=== PATIENT | female | born 1965 | race Caucasian/White ===

== ENCOUNTER 2019-09-11 17:34 | Outpatient (CLI) | payer OTHER, SELFPAY ==
--- NOTE | ~2019-09-11 | XR_ITS ---
EXAMINATION: XR chest 2V EXAM DATE: 09/11/2019 17:45 INDICATION: Acute upper respiratory infection. Cough. TECHNIQUE: Frontal and lateral projections of the chest obtained and reviewed. Comparison is made to prior examination from 04/07/2019. FINDINGS: The lungs are clear. There are no pleural effusions. The cardiomediastinal silhouette is within normal limits. There is no pneumothorax suspected. The bones and soft tissues are unremarkab le. There is no significant interval change. IMPRESSION: No acute cardiopulmonary findings. Reviewed, dictated and finalized at location A. ORACLE DEVELOPER
== END 2019-09-11 17:35 | disposition home or self-care (01) ==
LOC: ANHIMG 17:34
PROVIDERS: PCP Internal Medicine; Visit Provider Internal Medicine
DX: R68.89 Other general symptoms and signs (principal); R05 Cough; J02.9 Acute pharyngitis, unspecified; J06.9 Acute upper respiratory infection, unspecified
CPT/HCPCS: 71046

== ENCOUNTER 2019-09-12 08:37 | Outpatient (CLI) | payer OTHER, SELFPAY | END 2019-09-12 08:38 | disposition home or self-care (01) | PROVIDERS: PCP Internal Medicine; Visit Provider Internal Medicine | DX: J42 Unspecified chronic bronchitis (principal) | CPT/HCPCS: 87015; 87070; 87116; 87205; 87206 ==

== ENCOUNTER 2019-09-15 12:22 | Outpatient (CLI) | payer OTHER, SELFPAY ==
[2019-09-15 13:43] LABS: Basophils Percent Auto 0.3 % (0.2-1.2); Eosinophils Percent Auto 0.2 % (0-4.4); Hemoglobin 14.7 g/dL (12.0-15.0); Immature Granulocyte Absolute 0.06 K/mm3 (0.00-0.031); Immature Granulocyte Percent A 0.7 % (0-0.5); Lymphocytes Absolute Auto 1.34 K/mm3 (0.9-3.2); Lymphocytes Percent Auto 14.9 % (18.3-44.2); Mean Corpuscular Hemoglobin 27.9 pg (26-34); Mean Corpuscular Volume 87.3 fl (80-100); Mean Platelet Volume 10.6 fl (7.4-10.4); Monocytes Absolute Auto 0.7 K/mm3 (0.1-0.6); Monocytes Percent Auto 7.2 % (2.6-8.5); Neutrophils Absolute Auto 6.9 K/mm3 (1.3-6.7); Neutrophils Percent Auto 76.7 % (45.5-73.1); Platelet Count Result 284 k/mm3 (150-375); Red Blood Count 5.27 M/mm3 (4.2-5.4); Red Cell Distribution Width 13.3 % (11.5-14.5)
[2019-09-15 13:57] LABS: Alanine Aminotransferase 32 U/L (4-35); Albumin Level 4.7 g/dL (3.5-5.1); Alkaline Phosphatase 104 U/L (38-126); Aspartate Amino Transferase 26 U/L (14-36); Bilirubin,Total 0.6 mg/dL (0.2-1.3); Blood Urea Nitrogen 19 mg/dL (7-17); CRP < 0.5 mg/dL (<1.0); Carbon Dioxide 24 mmol/L (22-30); Chloride 102 mmol/L (98-107); Estimated Glomerular Filt Rate > 60; Glucose 85 mg/dL (65-105); Sodium 138 mmol/L (137-145)
[2019-09-15 14:08] LABS: Add Urine Microscopic? YES; Appearance Urine Clear (Clear); Bilirubin Urine Negative (Negative); Blood Urine Negative (Negative); Color Urine Yellow (Yellow); Glucose Urine UA Negative (Negative); Ketones Urine Negative (Negative); Leukocyte Esterase Ur Negative LEU/UL (NEGATIVE); Mucus Urine Rare /lpf; Nitrate Urine Negative (Negative); Protein Urine Negative (Negative); RBC Urine 0-2 /hpf (0-2); Specific Grav Ur 1.019 (1.001-1.035); Squamous Epithelial Cell Urine Few /hpf (Few); Urobilinogen Urine Negative mg/dL (<2.0); WBC Urine 0-3 /hpf (0-3)
[2019-09-18 13:46] LABS: Procalcitonin <0.10 ng/mL (<0.10)
== END 2019-09-15 12:23 | disposition home or self-care (01) ==
PROVIDERS: PCP Internal Medicine; Visit Provider Internal Medicine Critical Care Medicine
DX: B99.9 Unspecified infectious disease (principal); M35.9 Systemic involvement of connective tissue, unspecified
CPT/HCPCS: 36415; 80053; 81001; 84145; 85025; 86140

== ENCOUNTER 2019-09-18 11:16 | Outpatient (RCR) | payer OTHER, SELFPAY | END 2019-12-15 23:59 | disposition home or self-care (01) | LOC: ANHLAB 11:16 | PROVIDERS: PCP Internal Medicine; Visit Provider Internal Medicine Critical Care Medicine | DX: B99.9 Unspecified infectious disease (principal); R05 Cough | CPT/HCPCS: 87015; 87070; 87102; 87106; 87107; 87116; 87205; 87206 ==

== ENCOUNTER 2019-11-03 08:56 | Outpatient (CLI) | payer OTHER, SELFPAY ==
[2019-11-03 09:18] LABS: Basophils Absolute Auto 0.1 K/mm3 (0.0-0.1); Basophils Percent Auto 0.9 % (0.2-1.2); Eosinophils Absolute Auto 0.1 K/mm3 (0-0.3); Eosinophils Percent Auto 2.1 % (0-4.4); Hematocrit 45.7 % (37.0-47.0); Hemoglobin 14.6 g/dL (12.0-15.0); Immature Granulocyte Absolute 0.01 K/mm3 (0.00-0.031); Immature Granulocyte Percent A 0.2 % (0-0.5); Lymphocytes Absolute Auto 1.32 K/mm3 (0.9-3.2); Mean Corpuscular HGB Conc 31.9 g/dl (32-36); Mean Corpuscular Hemoglobin 27.9 pg (26-34); Mean Corpuscular Volume 87.4 fl (80-100); Mean Platelet Volume 10.2 fl (7.4-10.4); Monocytes Absolute Auto 0.5 K/mm3 (0.1-0.6); Monocytes Percent Auto 8.7 % (2.6-8.5); Neutrophils Absolute Auto 3.8 K/mm3 (1.3-6.7); Neutrophils Percent Auto 65.1 % (45.5-73.1); Platelet Count Result 231 k/mm3 (150-375); Red Blood Count 5.23 M/mm3 (4.2-5.4); White Blood Count 5.8 K/mm3 (4.5-10.0)
[2019-11-03 09:26] LABS: Hemoglobin A1C 5.4 % (<5.7)
[2019-11-03 09:36] LABS: Cholesterol 160 mg/dL (0-200); HDL Direct 48 mg/dL; Triglycerides 82 mg/dL (<150)
[2019-11-03 09:59] LABS: LDL Cholesterol Direct 84 mg/dL
[2019-11-03 10:49] LABS: Vitamin D 25 Hydroxy 87.2 ng/mL
== END 2019-11-03 08:57 | disposition home or self-care (01) ==
LOC: ANHLAB 08:58
PROVIDERS: PCP Internal Medicine; Visit Provider Internal Medicine
DX: B99.9 Unspecified infectious disease (principal); Z79.899 Other long term (current) drug therapy
CPT/HCPCS: 36415; 80061; 82306; 83036; 84443; 85025

== ENCOUNTER 2019-11-14 14:11 | Outpatient (CLI) | payer OTHER, SELFPAY ==
[2019-11-15 11:14] LABS: Reference Lab Test Result Negative
== END 2019-11-14 14:12 | disposition home or self-care (01) ==
PROVIDERS: PCP Internal Medicine; Visit Provider Internal Medicine
DX: B99.9 Unspecified infectious disease (principal)
CPT/HCPCS: 36415; 86769

== ENCOUNTER 2019-12-12 10:07 | Outpatient (CLI) | payer OTHER, SELFPAY ==
--- NOTE | ~2019-12-12 | CT_ITS ---
EXAMINATION:CT chest high resolution wo ne DATE: 12/12/2019 10:29 INDICATION: Unspecified infectious disease. TECHNIQUE: Computed tomography (CT) of the chest was performed without intravenous contrast. Automate d exposure control and iterative reconstruction technique were employed. The dose-length product (DLP ) was 294.48 mGy-cm. COMPARISON: Chest CT 05/09/2019, chest 2 views 09/11/2019 FINDINGS: There is mild atelectasis bilaterally. Calcified left lung nodules and calcified left hilar and mediastinal lymph nodes are consistent with old granulomatous disease. No pleural effusion. The heart size is normal. No pericardial effusion. Pectus excavatum is noted. Calcifications in the splee n are consistent with old granulomatous disease. There are changes of cholecystectomy. There is thora cic levocurvature and moderate spondylosis. IMPRESSION: 1. No acute pulmonary disease. Reviewed, dictated and finalized at location A.
== END 2019-12-12 10:08 | disposition home or self-care (01) ==
LOC: ANHIMG 10:14
PROVIDERS: PCP Internal Medicine; Visit Provider Internal Medicine Critical Care Medicine
DX: R06.02 Shortness of breath (principal)
CPT/HCPCS: 71250

== ENCOUNTER 2020-01-05 12:44 | Outpatient (CLI) | payer OTHER, SELFPAY ==
--- NOTE | 2020-01-07 10:41 | PFT_ITS ---
This report was moved to the correct visit, [id number], on January 15, 2020. Original report was signed by Dr. Shade Gray on January 07, 2020. PFT Interpretation PFT Interpretation: This PFT met all criteria for ATS standards and reproducibility FEV/FVC post bronchodilator 85% of predicted FEV1 106% FVC 95% TLC 96% RV 95% RV/TLC 36% DLCO 100% when adjusted for alveolar volume but not adjusted for hemoglobin Flow volume loops were normal NiOX was 22 ppb which is normal. Impression: Normal PFT and normal NiOx study. Clinical correlation is advised. Report Initialized date/time: Shaed Robertson MD 01/07/20 / 1040 Electronically signed by: Shade Robertson MD 01/07/201040 [facility]
== END 2020-01-05 12:45 | disposition home or self-care (01) ==
PROVIDERS: PCP Internal Medicine; Visit Provider Internal Medicine
DX: R05 Cough (principal)
CPT/HCPCS: 94060; 94726; 94729; 95012

== ENCOUNTER 2020-02-09 15:12 | Outpatient (CLI) | payer OTHER, SELFPAY | END 2020-02-09 15:13 | disposition home or self-care (01) | LOC: ANHLAB 15:13 | PROVIDERS: PCP Internal Medicine; Visit Provider Internal Medicine Critical Care Medicine | DX: J45.909 Unspecified asthma, uncomplicated (principal) | CPT/HCPCS: 36415; 82785; 86003 ==

== ENCOUNTER → 2020-03-14 12:24 | Outpatient (CLI) | payer OTHER, SELFPAY ==
--- NOTE | ~2020-03-14 | MM_ITS ---
EXAMINATION: MM screening daisha BI w ryan HISTORY: Screening TECHNIQUE: Craniocaudal and mediolateral oblique 3-D tomosynthesis images were obtained and synthetic 2-D images were generated. CAD analysis was submitted and interpreted. COMPARISON: Comparison to multiple prior studies sequentially, with oldest reviewed study dated 11/24. BREAST PARENCHYMAL COMPOSITION: There are scattered areas of fibroglandular density. FINDINGS: There is no evidence of suspicious mass, calcification, or architectural distortion to sugg est malignancy in either breast. There has been no suspicious interval change. IMPRESSION: 1. No mammographic evidence of malignancy. 2. Recommend routine screening mammography in one year. BI-RADS Category 1: Negative Reviewed, dictated and finalized at location A.
== END ==
PROVIDERS: PCP Internal Medicine; Visit Provider Obstetrics & Gynecology
DX: Z12.31 Encounter for screening mammogram for malignant neoplasm of breast (principal)
CPT/HCPCS: 77063; 77067

== ENCOUNTER 2020-06-12 07:37 | Outpatient (CLI) | payer OTHER, SELFPAY ==
--- NOTE | 2020-07-17 15:48 | WPDHOMESLEEP ---
Sleep Study - Home Unattended Date of Study: 06/12/20 Ordering Provider: Reji mcgill MD Interpreting Physician: Chuyita Harp MD Home Sleep Study Type: Apnea Link Air Height: 1.75 m Weight: 101.151 kg Body Mass Index: 32.9 Neck Circumference (inches): 14.5 [place]nora: 3 Reason for Sleep Study diastolic dysfunction, taking trazodone at night to prevent migraines Sleep History Saba Hartley is a 55 year old female with new diastolic dysfunction seen on an echo after a prolonged respiratory illness, now on Diovan for hypertension. She is having sleep evaluation to determine if sleep apnea may be causing diastolic dysfunction. She frequently snores at night and is frequently loud enough that others complain about it. she does not awaken and I with heartburn, belching or coughing. She does not awaken from sleep feeling short of breath. She frequently has trouble sleep with a cold. She does not wake up gasping for breath during the night or have breathing problems at night reported to her by others. She rarely sweats excessively at night. She occasionally notices her heart pounding or beating irregularly night. She rarely falls asleep during the day, never involuntarily and never while driving. She does not fall asleep during physical effort. She does not have loss of muscle tone with strong emotion and does not have daytime difficulties due to excessive sleepiness. She does not feel paralyzed on waking or falling asleep. She occasionally has vivid dreamlike scenes upon awakening or falling asleep. She has never a freight to go to sleep. She rarely has nightmares. She occasionally remembers her dreams. She rarely has racing thoughts or mine, really feel said depressed or anxious. She occasionally has muscular tension. She occasionally notices parts of her body jerking. She rarely kicks at night. She occasionally has crawling and aching feelings in her legs. She rarely has morning jaw pain. She frequently grinds her teeth at night. She occasion has bothered by pain during the day and rarely is awakened by pain at night. She frequently wakes up feeling stiff in the morning, occasionally with sore achy muscles, occasionally with pain in the neck and spine. She has had headaches, dizziness and stomach problems. She frequently awakens feeling refreshed. Normal bedtime is 11:00 p.m. falling asleep within 15-20 minutes, waking occasionally once. She will go to the bathroom or read when she awakens at night. She stays awake 15-20 minutes during the night. She wakes the morning at 6:00 a.m.. She estimates 7-8 hours of sleep at night. On weekends she goes to bed 1 hour later at midnight and wakes an hour later 7:00 a.m.. She does not take naps. A short nap is not refreshing. She feels better in the afternoon compared to the morning. Habits: Never smoked tobacco. Caffeine 1 or 2 TS or a diet soda per day. Alcohol 1 or 2 beverages per week. No recreational drugs. [facility] Past Medical History Medical History Acute bronchitis due to infection Anxiety disorder, unspecified BMI 33.0-33.9,adult Body mass index (BMI) 40.0-44.9, adult Bronchitis Chronic fatigue Cough Diastolic dysfunction Encounter for preventive health examination Family history of diabetes mellitus (DM) Flu-like symptoms Follow up Gastroesophageal reflux disease Grade II diastolic dysfunction Hyperlipidemia Keloid of skin Left ventricular diastolic dysfunction Left ventricular hypertrophy Lymphadenopathy Mild left atrial enlargement Mitral valve regurgitation Mixed hyperlipidemia Mycoplasma infection On long-term drug therapy Post-nasal drip Recurrent infections Shortness of breath Sick Sore throat Thrush (~05/2019) URI (upper respiratory infection) Vitamin D deficiency Surgical History Surgical History History of cholecystectomy History of endometrial abl
[2020-07-17 15:54] VITALS: BMI 32.9
== END 2020-06-12 07:38 | disposition home or self-care (01) ==
LOC: ANHCSM 07:37
PROVIDERS: PCP Internal Medicine; Visit Provider Internal Medicine
DX: G47.10 Hypersomnia, unspecified (principal); G47.33 Obstructive sleep apnea (adult) (pediatric)
CPT/HCPCS: 95806

== ENCOUNTER 2020-09-25 14:01 | Emergency (ER) | payer OTHER, SELFPAY ==
--- NOTE | ~2020-09-25 | CT_ITS ---
EXAMINATION: CT abdomen pelvis w con DATE: 09/25/2020 17:21 INDICATION: Right-sided abdominal pain TECHNIQUE: Computed tomography (CT) of the abdomen and pelvis was performed without intravenous contr ast. Automated exposure control and iterative reconstruction technique were employed. Exam dose: 149 5.28 mGy-cm total exam DLP. COMPARISON: None. FINDINGS: Minimal atelectasis in the lower lung zones. There are calcified left hilar and subcarinal nodes and calcified splenic granulomas consistent with old granulomatous disease Cardiomegaly. No pericardial or pleural effusion. Status post cholecystectomy. The liver, spleen, pancreas and bile ducts and pancreatic duct are unrem arkable. Normal morphology of the adrenal glands. No renal mass lesion is detected. No urinary tract calculus or hydroureteronephrosis. The urinary ramone dder, uterus are unremarkable. Left ovarian cyst measuring up to 10 mm. There is normal caliber of the abdominal aorta. No intraperitoneal or retroperitoneal or pelvic mass lesion or adenopathy or ascites is detected. Mild colonic diverticulosis; no CT evidence of diverticulitis. No bowel obstruction, bowel wall thick ening, pneumatosis or intraperitoneal free air. No evidence of appendicitis. There is severe degenerative disc disease at L3-4, L4-5 and L5-S1. No suspicious osteolytic or osteob lastic lesions are noted. Probable bone islands of the left femoral head and posterior left acetabulu m. IMPRESSION: Cardiomegaly Status post cholecystectomy Up to 10 mm left ovarian cysts Mild colonic diverticulosis Reviewed, dictated and finalized at Location A. Reviewed, dictated and finalized at location A.
[2020-09-25 14:56] VITALS: BP 123/72; PULSE 91; RESP 18; TEMP 36.6; O2SAT 98
[2020-09-25 15:08] LABS: Basophils Absolute Auto 0.1 K/mm3 (0.0-0.1); Basophils Percent Auto 0.7 % (0.2-1.2); Eosinophils Absolute Auto 0.1 K/mm3 (0-0.3); Eosinophils Percent Auto 1.8 % (0-4.4); Hematocrit 44.3 % (37.0-47.0); Hemoglobin 14.9 g/dL (12.0-15.0); Immature Granulocyte Absolute 0.04 K/mm3 (0.00-0.031); Immature Granulocyte Percent A 0.6 % (0-0.5); Lymphocytes Absolute Auto 1.66 K/mm3 (0.9-3.2); Lymphocytes Percent Auto 23.4 % (18.3-44.2); Mean Corpuscular HGB Conc 33.6 g/dl (32-36); Mean Corpuscular Hemoglobin 29.6 pg (26-34); Mean Corpuscular Volume 88.1 fl (80-100); Mean Platelet Volume 9.6 fl (7.4-10.4); Monocytes Absolute Auto 0.5 K/mm3 (0.1-0.6); Monocytes Percent Auto 7.5 % (2.6-8.5); Neutrophils Absolute Auto 4.7 K/mm3 (1.3-6.7); Platelet Count Result 253 k/mm3 (150-375); Red Blood Count 5.03 M/mm3 (4.2-5.4); Red Cell Distribution Width 13.1 % (11.5-14.5); White Blood Count 7.1 K/mm3 (4.5-10.0)
[2020-09-25 15:09] LABS: Add Urine Microscopic? YES; Appearance Urine Clear (Clear); Bilirubin Urine Negative (Negative); Blood Urine Negative (Negative); Color Urine Straw (Yellow); Glucose Urine UA Negative (Negative); Ketones Urine Negative (Negative); Leukocyte Esterase Ur Negative LEU/UL (Negative); Mucus Urine Rare /lpf; Nitrate Urine Negative (Negative); Protein Urine Negative (Negative); RBC Urine 0-2 /hpf (0-2); Specific Grav Ur 1.012 (1.001-1.035); Squamous Epithelial Cell Urine Rare /hpf (Few); Urobilinogen Urine Negative mg/dL (<2.0); WBC Urine 0-3 /hpf
[2020-09-25 15:17] LABS: Alanine Aminotransferase 23 U/L (4-35); Albumin Level 4.7 g/dL (3.5-5.1); Alkaline Phosphatase 87 U/L (38-126); Anion Gap 9 mmol/L (8-16); Aspartate Amino Transferase 27 U/L (14-36); Bilirubin,Total 0.5 mg/dL (0.2-1.3); Blood Urea Nitrogen 21 mg/dL (7-17); Calcium 9.5 mg/dL (8.4-10.2); Carbon Dioxide 28 mmol/L (22-30); Chloride 102 mmol/L (98-107); Estimated CRCL calculation 104 ml/min; Estimated Glomerular Filt Rate > 60; Glucose 122 mg/dL (65-105); Lipase 83 U/L (23-300); Potassium 3.9 mmol/L (3.4-5.0); Sodium 139 mmol/L (137-145)
[2020-09-25 16:31] VITALS: BP 141/88; PULSE 85; RESP 16; O2SAT 100
[2020-09-25 17:00] VITALS: BP 155/100; PULSE 86; RESP 18; O2SAT 100
--- NOTE | 2020-09-25 17:53 | ED.GENADULT ---
HPI - General Adult General Chief complaint: Abdominal Pain Stated complaint: r abd pain/black stools Time Seen by Provider: 09/25/20 16:23 History of Present Illness HPI narrative: Patient is a 55-year-old female who presents ER with right side abdominal pain and like stools. Reports has been having intermittent abdominal pain on his right side for several weeks. Started having dark stools after lunch today. She took some Pepto-Bismol but that was after she had a dark stool. No history of GI bleed. She is not on blood thinners. Has not been taking anti-inflammatories. No loss of consciousness or hematemesis. PCP was concerned about appendicitis according patient as well as GI bleed and sent to ER for further evaluation. Patient's abdominal pain is right mid abdomen without radiation. She cannot describe any aggravating or alleviating factors of this pain. She has had a cholecystectomy. Related Data Home Medications Medication Instructions Recorded Confirmed cetirizine 10 mg capsule 10 mg PO DAILY 02/02/20 09/23/20 fluticasone furoate 27.5 1 spray NASAL DAILY 02/02/20 09/23/20 mcg/actuation nasal spray,suspension cholecalciferol (vitamin D3) 25 2,000 unit PO DAILY cap 04/24/20 09/23/20 mcg (1,000 unit) capsule L.acidophilus,gasseri,rhamnosus-B.bifidum,long cap PO 08/15/20 09/23/20 3 billion cell capsule multivitamin 1 tablet PO DAILY 08/15/20 09/23/20 Allergies Allergy/AdvReac Type Severity Reaction Status Date / Time adhesive Allergy Unknown Unknown Verified 09/23/20 15:39 bacitracin Allergy Unknown Unknown Verified 09/23/20 15:39 Penicillins Allergy Unknown Diarrhea Verified 09/23/20 15:39 polymyxin B Allergy Unknown Unknown Verified 09/23/20 15:39 Sulfa (Sulfonamide Allergy Unknown Headache Verified 09/23/20 15:39 Antibiotics) sulfanilamide Allergy Unknown Unknown Verified 09/23/20 15:39 POLYMYCIN OINTMENT Allergy Intermediate SKIN Uncoded 09/23/20 15:39 BLISTERS Review of Systems Review of Systems: All systems reviewed & are unremarkable except as noted in HPI and below Constitutional: Constitutional: Denies chills, Denies fever(s) and Denies weakness ENT: Denies nasal congestion and Denies sore throat Cardiovascular: Cardiovascular: Denies chest pain, Denies rapid heart rate and Denies radiating jaw, neck or arm pain Respiratory: Respiratory: Denies cough and Denies dyspnea Gastrointestinal: Gastrointestinal: Denies diarrhea, Denies nausea and Denies vomiting Comments: Dark black stools Genitourinary: Genitourinary: Denies nocturia, Denies dysuria and Denies flank pain [facility] Past Medical History Medical History (Updated 09/25/20 @ 18:03 by Hema Pool MD) Acute bronchitis due to infection Anxiety disorder, unspecified BMI 33.0-33.9,adult BMI 35.0-35.9,adult Body mass index (BMI) 40.0-44.9, adult Bronchitis Chronic fatigue Cough Diastolic dysfunction Dysphagia Encounter for preventive health examination Family history of diabetes mellitus (DM) Flu-like symptoms Follow up Gastroesophageal reflux disease Grade II diastolic dysfunction Hyperlipidemia Keloid of skin Left ventricular diastolic dysfunction Left ventricular hypertrophy Lymphadenopathy Mild left atrial enlargement Mitral valve regurgitation Mixed hyperlipidemia Mycoplasma infection On middle or intermediate school principal drug therapy Post-nasal drip Recurrent infections Shortness of breath Sick Sore throat Thrush (~05/2019) URI (upper respiratory infection) Vitamin D deficiency Surgical History Surgical History History of cholecystectomy History of endometrial ablation History of knee replacement History of tubal ligation Family History Family History Father Malignant neoplasm of prostate Hypertension Family history of elevated blood lipids Family history of coronary artery disease Family history of arth
[2020-09-25 18:36] VITALS: BP 136/75; PULSE 70; RESP 18; O2SAT 100
== END 2020-09-25 18:37 | disposition home or self-care (01) ==
PROVIDERS: Emergency Provider Emergency Medicine; PCP Internal Medicine
DX: N83.202 Unspecified ovarian cyst, left side (principal); I50.30 Unspecified diastolic (congestive) heart failure; K21.9 Gastro-esophageal reflux disease without esophagitis; E78.5 Hyperlipidemia, unspecified; I51.7 Cardiomegaly; E55.9 Vitamin D deficiency, unspecified; Z96.659 Presence of unspecified artificial knee joint; K57.90 Diverticulosis of intestine, part unspecified, without perforation or abscess without bleeding
CPT/HCPCS: 36415; 74177; 80053; 81001; 83690; 85025; 99284; Q9967

== ENCOUNTER 2020-09-27 09:22 | Outpatient (CLI) | payer OTHER, SELFPAY ==
--- NOTE | ~2020-09-27 | XR_ITS ---
EXAMINATION: XR UGIAC w barium swallow EXAM DATE: 09/27/2020 10:06 INDICATION: R13.10 - Dysphagia, unspecified. Symptoms have flared up. Reflux, on proton pump inhibito rs. Severe Gas And Heartburn, Trouble Swallowing Food, Sensation Of Narrowing Of The throat, Right S ided Pain Times One Week That Has Gotten Better With [place] Diet. And Black Tar Stools. TECHNIQUE: Standard single and double contrast barium esophagram and upper GI examination was perform ed. The DAP for this procedure was 2.5 Gycm2. Correlation is made to CT abdomen pelvis from . FINDINGS: The pharynx is symmetric and without evidence of mass lesion or mucosal irregularity. Ther e is no esophageal stricture, diverticulum or mass identified. Gastroesophageal junction is normal i n appearance. Reflux was not demonstrated during this examination. The stomach has a normal appearance without evidence of mass lesion, ulceration or filling defect. T here is normal rugal fold pattern. The duodenum and duodenal sweep are normal in appearance. IMPRESSION: Normal exam. Reviewed, dictated and finalized at location A. IMPRESSION: Normal exam.
== END 2020-09-27 09:23 | disposition home or self-care (01) ==
LOC: ANHIMG 09:24
PROVIDERS: PCP Internal Medicine; Visit Provider Internal Medicine
DX: R13.10 Dysphagia, unspecified (principal)
CPT/HCPCS: 74246

== ENCOUNTER 2020-11-11 08:05 | Outpatient (CLI) | payer OTHER, SELFPAY ==
--- NOTE | ~2020-11-11 | XR_ITS ---
EXAMINATION:XR_[id number]_CR DATE: 11/11/2020 08:39 INDICATION: Neck pain TECHNIQUE: AP, lateral, lateral swimmers and odontoid views of the cervical spine are provided. COMPARISON: None FINDINGS: Alignment is normal. The odontoid is intact. No fracture is identified. The vertebral body heights are normal. There is moderate loss of intervertebral disc space height at C5-6 and C6-7. Ther e is moderate to severe facet and uncovertebral joint osteoarthritis of the mid and lower cervical sp ine. Prevertebral soft tissues are normal. IMPRESSION: 1. Moderate cervical spondylosis without acute findings. Reviewed, dictated and finalized at location A.
--- NOTE | ~2020-11-11 | XR_ITS ---
EXAMINATION: XR shoulder RT min 2V INDICATION: Right shoulder pain and tingling TECHNIQUE: Four views of the right shoulder are submitted. COMPARISON: None FINDINGS: Normal alignment. No fracture. Glenohumeral and acromioclavicular joint spaces are normal. Amorphous calcification near the greater tuberosity may reflect tendinous calcification. Soft tissues are unremarkable. IMPRESSION: 1. No acute osseous abnormality. Reviewed, dictated and finalized at location A.
== END 2020-11-11 08:06 | disposition home or self-care (01) ==
LOC: ANHIMG 08:09
PROVIDERS: PCP Internal Medicine; Visit Provider Internal Medicine
DX: M25.511 Pain in right shoulder (principal)
CPT/HCPCS: 72040; 73030

== ENCOUNTER → 2021-03-11 16:58 | Outpatient (CLI) | payer OTHER, SELFPAY ==
--- NOTE | ~2021-03-11 | US_ITS ---
EXAMINATION: US pelvic complete w TV DATE: 03/11/2021 17:52 INDICATION: Ovarian cyst. TECHNIQUE: Multiple transabdominal and transvaginal sonographic images of the pelvis were obtained. COMPARISON: CT abdomen and pelvis 09/25/2020 FINDINGS: TRANSABDOMINAL ULTRASOUND: The uterus measures 5.4 x 3.2 x 3.8 cm. There is no free fluid in the pelvis. TRANSVAGINAL ULTRASOUND: The endometrial complex measures 4 mm in thickness. There is a 1.1 cm intramural fibroid. The right o vary is not visualized. The left ovary measures 1.7 x 2.8 x 1.5 cm. There is normal vascular flow lef t ovary. IMPRESSION: 1. Normal left ovary. Right ovary not visualized. 2. Uterine fibroid. Reviewed, dictated and finalized at location A.
== END ==
PROVIDERS: Visit Provider Obstetrics & Gynecology
DX: N83.209 Unspecified ovarian cyst, unspecified side (principal)
CPT/HCPCS: 76830; 76856

== ENCOUNTER → 2021-04-29 07:27 | Outpatient (CLI) | payer OTHER, SELFPAY ==
--- NOTE | ~2021-04-29 | MM_ITS ---
EXAMINATION: MM screening daisha BI w ryan HISTORY: Screening mammogram TECHNIQUE: Craniocaudal and mediolateral oblique 3-D tomosynthesis images were obtained and synthetic 2-D images were generated. CAD analysis was submitted and interpreted. COMPARISON: 03/31/2020, 03/07/2018, 07/21/2016 bilateral digital screening mammogram examinations BREAST PARENCHYMAL COMPOSITION: The breasts are almost entirely fatty. FINDINGS: There is no evidence of suspicious mass, calcification, or architectural distortion to sugg est malignancy in either breast. There has been no suspicious interval change. IMPRESSION: 1. No mammographic evidence of malignancy. 2. Recommend routine screening mammography in one year. BI-RADS Category 1: Negative Reviewed, dictated and finalized at location A.
== END ==
PROVIDERS: PCP Internal Medicine; Visit Provider Obstetrics & Gynecology
DX: Z12.31 Encounter for screening mammogram for malignant neoplasm of breast (principal)
CPT/HCPCS: 77063; 77067

== ENCOUNTER → 2022-06-27 09:03 | Outpatient (CLI) | payer OTHER, SELFPAY ==
--- NOTE | ~2022-06-27 | MM_ITS ---
EXAMINATION: MM screening daisha BI w ryan HISTORY: Screening TECHNIQUE: Craniocaudal and mediolateral oblique 3-D tomosynthesis images were obtained and synthetic 2-D images were generated. CAD analysis was submitted and interpreted. COMPARISON: Comparison to multiple prior studies sequentially, with oldest reviewed study dated 11/2015. BREAST PARENCHYMAL COMPOSITION: The breasts are almost entirely fatty. FINDINGS: There is no evidence of suspicious mass, calcification, or architectural distortion to sugg est malignancy in either breast. There has been no suspicious interval change. IMPRESSION: 1. No mammographic evidence of malignancy. 2. Recommend routine screening mammography in one year. BI-RADS Category 1: Negative Reviewed, dictated and finalized at location A. TERIA FOOD SERVER
== END ==
PROVIDERS: PCP Internal Medicine; Visit Provider Obstetrics & Gynecology
DX: Z12.31 Encounter for screening mammogram for malignant neoplasm of breast (principal)
CPT/HCPCS: 77063; 77067

== ENCOUNTER 2022-09-14 12:02 | Outpatient (CLI) | payer OTHER, SELFPAY ==
--- NOTE | ~2022-09-14 | XR_ITS ---
XR chest 2V DATE: 09/14/2022 12:29 INDICATION: Productive cough. Congestion. History of asthma. TECHNIQUE: PA and lateral views COMPARISON: 12/12/2019 CT chest high resolution scan FINDINGS: Mild cardiomegaly, left ventricular prominence. Aortic arch calcification. No hilar or medi astinal enlargement. Azygos lobe, normal variant. No pulmonary infiltrate or consolidation, pleural effusion or pulmonary vascular congestion or pneumothorax is detected. Pectus excavatum. Mild levoscoliosis and degenerative spurring of the thoracic spine. Surgical clips, right upper quadrant, due to cholecystectomy IMPRESSION: Mild cardiomegaly Aortic arch calcification No active pulmonary disease Reviewed, dictated and finalized at location B. GER INTERN
== END 2022-09-14 12:03 | disposition home or self-care (01) ==
PROVIDERS: PCP Internal Medicine; Visit Provider Internal Medicine
DX: R05.9 Cough, unspecified (principal); R09.89 Other specified symptoms and signs involving the circulatory and respiratory systems; I51.7 Cardiomegaly; I70.0 Atherosclerosis of aorta
CPT/HCPCS: 71046

== ENCOUNTER 2024-01-12 07:49 | Outpatient (CLI) | payer OTHER, SELFPAY ==
--- NOTE | ~2024-01-12 | US_ITS ---
EXAMINATION: US abdomen limited DATE: 01/12/2024 08:15 INDICATION: Right upper quadrant abdominal pain. TECHNIQUE: Multiple grayscale and Doppler ultrasound images of the abdomen were obtained. COMPARISON: CT abdomen pelvis 09/25/2020 FINDINGS: The visualized portions of the head, body, and tail of the pancreas are normal. The liver i s normal without focal lesion. No liver surface nodularity. There is normal flow in main portal vein. The gallbladder is absent. The common duct is normal and measures 4 mm. IMPRESSION: 1. Normal right upper quadrant ultrasound status post cholecystectomy. Reviewed, dictated and finalized at location A.
== END 2024-01-12 07:50 ==
PROVIDERS: PCP Internal Medicine; Visit Provider Internal Medicine
DX: R10.11 Right upper quadrant pain (principal); Z90.49 Acquired absence of other specified parts of digestive tract
CPT/HCPCS: 76705

== ENCOUNTER 2024-01-28 13:19 | Outpatient (CLI) | payer OTHER, SELFPAY ==
--- NOTE | ~2024-01-28 | MM_ITS ---
EXAMINATION: MM screening daisha BI w ryan HISTORY: Screening TECHNIQUE: Craniocaudal and mediolateral oblique 3-D tomosynthesis images were obtained and synthetic 2-D images were generated. CAD analysis was submitted and interpreted. COMPARISON: Comparison to multiple prior studies sequentially, with oldest reviewed study dated 07/21. BREAST PARENCHYMAL COMPOSITION: Not Dense: Breast are almost entirely fatty. FINDINGS: There is no evidence of suspicious mass, calcification, or architectural distortion to sugg est malignancy in either breast. There has been no suspicious interval change. IMPRESSION: 1. No mammographic evidence of malignancy. 2. Recommend routine screening mammography in one year. BI-RADS Category 1: Negative Reviewed, dictated and finalized at location B.
== END 2024-01-28 13:20 ==
PROVIDERS: PCP Internal Medicine; Visit Provider Obstetrics & Gynecology
DX: Z12.31 Encounter for screening mammogram for malignant neoplasm of breast (principal)
CPT/HCPCS: 77063; 77067

== ENCOUNTER 2024-02-15 15:29 | Outpatient (CLI) | payer OTHER, SELFPAY ==
--- NOTE | ~2024-02-15 | CT_ITS ---
CT abdomen pelvis w con Ordering provider: Reji Dodd MD History: 58 years Female with . R10.9 - Unspecified abdominal pain . Comparison: September 25, 2020 Technique: CT abdomen and pelvis with IV and without oral contrast. Automated exposure control and it erative reconstruction technique were employed. The dose-length product was 1519.40 mGy-cm. 100 mL Om nipaque 350 was given IV. Findings: VISUALIZED LOWER CHEST: Dependent atelectatic changes. Left hilar and subcarinal calcified lymph node s. UPPER ABDOMINAL ORGANS: Liver: Normal. Gallbladder: Status post cholecystectomy. Spleen: Normal. Stomach/duodenum: Normal. Pancreas: Normal. Adrenals: Normal. Kidneys: Normal. PELVIC ORGANS: The bladder is normal. BOWEL AND MESENTERY: Colon: No evidence of diverticulitis. No evidence of appendicitis. Small Bowel: Normal. No obstruction. Peritoneum/mesentery: No free air or free fluid. No mesenteric lymphadenopathy. RETROPERITONEUM: Mild atheromatous disease of the abdominal aorta. No retroperitoneal lymphadenopat hy. MUSCULOSKELETAL: Superficial soft tissues: The superficial soft tissues are normal. Bones: Age appropriate degenerative changes of the spine. IMPRESSION: 1. No evidence of appendicitis, diverticulitis or intestinal obstruction. No renal stones. Reviewed, dictated and finalized at location A. IMPRESSION: 1. No evidence of appendicitis, diverticulitis or intestinal obstruction. No r enal stones.
== END 2024-02-15 15:30 | disposition home or self-care (01) ==
LOC: ANHIMG 15:30
PROVIDERS: PCP Internal Medicine; Visit Provider Internal Medicine
DX: R10.9 Unspecified abdominal pain (principal)
CPT/HCPCS: 74177; Q9967

== ENCOUNTER 2024-02-22 06:53 | Outpatient (CLI) | payer OTHER, SELFPAY ==
--- NOTE | ~2024-02-22 | NM_ITS ---
EXAM: NM gastric emptying study DATE: 02/22/2024 11:29 INDICATION: Unspecified abdominal pain. TECHNIQUE: A gastric emptying study was performed using the methodology of Mykel ALBA, et al. J Nucl Med 2007; 48:568-572. The patient was given a meal consisting of 2 scrambled eggs labeled with 0.970 mCi Tc-99m sulfur colloid, 2 slices of toast, two packages of jam, and approximately 120 mL of water . Simultaneous anterior and posterior 1-min images of the abdomen were obtained with the patient supi ne at multiple time points over a total period of 4 hours. The geometric mean of anterior and posteri or views was determined, and the percentage retention was calculated for each time point. COMPARISON: CT abdomen and pelvis 02/15/24 FINDINGS: Gastric retention of the radiotracer-labeled meal was 52%, 30%, and 2% at the 1-hour, 2-ho ur, and 4-hour time points, respectively. With this technique, apparent rapid gastric emptying is sug gested by <30% gastric retention at 1 hour. Delayed gastric emptying is defined by gastric retention of >90% at 1 hour, >60% retention at 2 hours, or >10% retention at 4 hours. IMPRESSION: 1. Normal gastric emptying. Reviewed, dictated and finalized at location A. IMPRESSION: 1. Normal gastric emptying.
== END 2024-02-22 06:54 | disposition home or self-care (01) ==
PROVIDERS: PCP Internal Medicine; Visit Provider Internal Medicine
DX: R10.9 Unspecified abdominal pain (principal)
CPT/HCPCS: 78264; A9541

== ENCOUNTER 2024-08-02 09:30 | Outpatient (CLI) | payer OTHER, SELFPAY ==
--- NOTE | ~2024-08-02 | MMUS_ITS ---
EXAMINATION: MM diagnostic daisha RT w ryan, US axilla RT HISTORY: Palpable abnormality right axillary tail. TECHNIQUE: Additional 3-D tomosynthesis images of the right breast were performed and synthetic 2-D i mages were generated. CAD analysis was submitted and interpreted. High resolution right axillary ultr asound was performed. COMPARISON: Comparison to multiple prior studies sequentially, with oldest reviewed study dated 07/21. BREAST PARENCHYMAL COMPOSITION: Not Dense: The breasts are almost entirely fatty. FINDINGS: MAMMOGRAPHIC FINDINGS: There are no suspicious masses, calcifications or architectural distortion in the right breast to sug gest malignancy. No abnormality is identified in the area of palpable concern. ULTRASOUND: Right axillary ultrasound: Normal lymph nodes. No suspicious masses identified to suggest malignancy. Specifically no abnormality in the area of palpable concern is seen. IMPRESSION: 1. No evidence for malignancy in the right breast. 2. Routine yearly screening mammogram and regular clinical breast examination are recommended. BI-RADS Category 1: Negative Reviewed, dictated and finalized at location A. CONTROLS TECHNICIAN IMPRESSION: 1. No evidence for malignancy in the right breast. 2. Routine yearly screening mammogram and regular clinical breast examination a re recommended. BI-RADS Category 1: Negative
== END 2024-08-02 09:31 | disposition home or self-care (01) ==
LOC: MICIMG 09:31
PROVIDERS: PCP Obstetrics & Gynecology; Visit Provider Internal Medicine
DX: N63.31 Unspecified lump in axillary tail of the right breast (principal); N64.4 Mastodynia; R22.31 Localized swelling, mass and lump, right upper limb
CPT/HCPCS: 76882; 77061; 77065; G0279

== ENCOUNTER 2024-10-31 13:59 | Outpatient (CLI) | payer OTHER, SELFPAY ==
--- NOTE | ~2024-10-31 | XR_ITS ---
2 VIEWS SOFT TISSUES NECK Ordering provider: Reji Dodd MD History: . M54.2 - Cervicalgia . Comparison: October 31, 2024 FINDINGS: SOFT TISSUES: No prevertebral soft tissue swelling. The epiglottis is normal. The pharynx and trach ea appear patent. VERTEBRAL BODIES: Normal height and alignment. No acute osseous findings. Degenerative changes of the spine. DISK SPACES: Narrowing of the disc spaces at C5-C6 and C6-C7. Multilevel facet joint disease. Multile lance uncovertebral joint osteoarthritic changes. IMPRESSION: No acute osseous abnormality. Multilevel degenerative disc disease. Unremarkable soft tissues of the neck. Reviewed, dictated and finalized at location A.
--- NOTE | ~2024-10-31 | XR_ITS ---
XR knee RT min 4V Ordering provider: Reji Dodd MD History: . Standing view of knee . Comparison: None. FINDINGS: BONES: No acute fracture or dislocation. Sclerotic changes seen in the medial tibial plateau most lik james osteoarthritic. Follow-up advised. JOINT SPACES: Medial right hemiarthroplasty. Mild osteoarthritic changes in the lateral compartment a nd the patella. SOFT TISSUES: Normal. IMPRESSION: No acute osseous abnormality right knee. Sclerotic changes in the medial tibial plateau area. Follow-up advised. Arthroplasty seen medially. Reviewed, dictated and finalized at location A.
--- NOTE | ~2024-10-31 | XR_ITS ---
XR shoulder RT min 2V Ordering provider: Reji Dodd MD History: . M25.519 - Pain in unspecified shoulder . Comparison: None. FINDINGS: BONES: No acute fracture or dislocation. JOINT SPACES: The acromioclavicular joint shows osteoarthritic changes. The glenohumeral joint is nor mal. SOFT TISSUES: Normal. IMPRESSION: No acute osseous abnormality right shoulder. Osteoarthritic changes of the right acromioclavicular joint. Reviewed, dictated and finalized at location A.
--- NOTE | ~2024-10-31 | XR_ITS ---
XR cervical spine 4-5V Ordering provider: Reji Dodd MD History: . M54.2 - Cervicalgia . Comparison: None. FINDINGS: VERTEBRAL BODIES: Normal height and alignment. No visible fracture or subluxation. The dens is intact . Degenerative changes of the spine. DISK SPACES: Narrowing of the disc C5-C6 and C6-C7. Multilevel facet joint disease. Multilevel uncove rtebral joint osteoarthritic changes. PARASPINOUS SOFT TISSUES: No prevertebral soft tissue swelling. IMPRESSION: No acute osseous abnormality cervical spine. Multilevel degenerative disc disease. Reviewed, dictated and finalized at location A.
--- OUTSIDE RECORDS SUMMARY | 2024-10-31 16:04 | XMS_ITS | Clinical Summary ---
Author Organization [employer] [facility] [place] Address [address] [address] [place] [address] Phone Care Team Providers Care Painter Structural Steel Name Role Phone Reji Dodd MD Primary Care Provider + Allergies Active Allergy Reactions Criticality Noted Date Comments Adhesive Rash Low 09/27/2020 Bacitracin-Polymyxin B Rash Low 09/27/2020 Penicillins Nausea and Vomiting Low 09/27/2020 Sulfa (Sulfonamide Antibiotics) Headache Low 09/27/2020 Unclassified Drug Rash Low 09/27/2020 Surgical prep cleanser Medications fluticasone furoate-vilante roL (Breo Ellipta) 100-25 mcg/dose Disk with Device Take 1 Puff by inhalation daily. Active cetirizine (ZyrTEC) 10 mg tablet Take 10 mg by mouth daily. Active RABEprazole (ACIPHEX) 20 mg Tablet, Delayed Release (E.C.) Take 20 mg by mouth daily. Active rosuvastatin (CRESTOR) 20 mg tablet Take 40 mg by mouth daily. Active valsartan-hydro CHLOROthiazide (DIOVAN HCT) 80-12.5 mg tablet Take 1 Tablet by mouth daily. Active traZODone (DESYREL) 100 mg tablet Take 100 mg by mouth daily at bedtime. Active multivitamin (DAILY-MALENA) tablet Take 1 Tablet by mouth daily. Active valACYclovir (VALTREX) 500 mg tablet Take by mouth 2 times daily. Active celecoxib (CeleBREX) 50 mg capsule Take 50 mg by mouth. Active diclofenac sodium (VOLTAREN) 1 % gel Apply to affected area 4 times daily. Active semaglutide (Rybelsus) 3 mg Tablet Take by mouth. Activ e Active Problems Problem Noted Date Diagnosed Date Hx of adenomatous polyp of colon 03/22/2024 SSBE (short-segment Sanchez's esophagus) 024 Encounters Date Type Department Care Team Description 09/27/2024 External Device Data [facility] ABSTRACTION Provider, Abstract 09/19/2024 External Device Data [facility] ABSTRACTION Provider, Abstract 09/19/2024 External Device Data [facility] ABSTRACTION Provider, Abstract 09/16/2024 External Device Data [facility] ABSTRACTION Provider, Abstract 09/15/2024 External Device Data [facility]STRACTION Provider, Abstract 09/13/2024 External Device Data [facility] ABSTRACTION Provider, Abstract 08/29/2024 External Device Data [facility] ABSTRACTION Provider, Abstract 08/02/2024 External Device Data [facility] ABSTRACTION Provider, Abstract 08/02/2024 External Device Data [facility] ABSTRACTION Provider, Abstract from Last 3 Months Family History Medical History Relation Name Comments Colon Cancer Neg Hx Social History Tobacco Use Types Packs/Day Years Used Date Smoking Tobacco: Never Smokeless Tobacco: Never Alcohol Use Standard Drinks/Week Comments Yes 0 (1 standard drink = 0.6 oz pur e alcohol) occas. Feeling Safe Answer Date Recorded Are you in a relationship wi th someone who hurts you emotionally and/or physically? No 03/20/2024 Comments Unknown Sex and Gender Information Value Date Recorded Sex Assigned at Not on file Legal Sex Female 2:32 PM CDT Gender Identity Not on file Sexual Orientation Not on file Last Filed Vital Signs Vital Sign Reading Time Taken Comments Blood Pressure 126/62 03/20/2024 1:44 PM CDT Pulse 81 03/20/2024 1:44 PM CDT Temperature 36.4 C (97.5 F) 03/20/2024 1:22 PM CDT Respiratory Rate 16 03/20/2024 1:44 PM CDT Oxygen Saturation 100% 03/20/2024 1:44 PM CDT Inhaled Oxygen Concentration - - Weight 112.4 kg (247 lb 12.8 oz) 2023 11:51 AM CDT Height 172.7 cm (5' 8 ) 03/20/2024 11:5 1 AM CDT Body Mass Index 37.68 03/20/2024 11:51 AM CDT Plan of Treatment Health Maintenance Due Date Last Done Comments Pre-Diabetes and Diabetes Screening 1965 DTAP/TDAP/TD VACCINES (1 - Tdap) 1985 HEPATITIS B VACCINES (1 of 3 - 19+ 3-dose series) 1985 HPV/Cotest (21-29) 1987 PAP SMEAR 1987 CERVICAL CANCER SCREENING 1996 HPV/Cotest (30-65) 1996 PAP SMEAR 1996 BREAST CANCER SCREENING 2006 FIT-DNA Q 3 years 2011 FIT/FOBT Q 1 year 2011 Flex Sig/CT Colonography Q 5 years 2011 ZOSTER VACCINE (1 of 2) 2016 INFLUENZA VACCINE (#1) 2024 07/14/2019 COLORECTAL SCREENING 03/20/2029 03/20/2024, 03/20/2024, 10/09/2020, Additional history exists Colorectal Cancer Screening 03/20/2029 UPPER GI ENDOSCOPY 03/20/2029 03/20/2024, 10/09/2020 PNEUMOCOCCAL VACCINE 0-49 YEARS Aged Out No longer eligible based on patient's age to complete this topic Procedures Procedure Name Priority Date/Time Associated Diagnosis Comments COLONOSCOPY REPORT 03/20/2024 1: 23 PM CDT from Last 3 Months or Most Recently Relevant to Health Maintenance Results * COLONOSCOPY REPORT (03/20/2024 1:23 PM CDT) Narrative Procedure Note Sebastian Laughlin MD - 03/20/2024 1:23 PM CDT [facility] Endoscopy Patient Name: Saba Hartley Procedure Date: 03/20/2024 Date of : 1965 Attending MD: Sebastian Laughlin MD, Procedure: Colonoscopy Indications: Surveillance: Personal history of adenomatous polyps on last colonoscopy 09/2020. Providers: Sebastian Laughlin MD Referring MD: Reji Dodd MD Medicines: Propofol per Anesthesia Complications: No immediate complications. Procedure: Informed consent was obtained for the procedure, including moderate sedation after risks were discussed. Based on the pre-procedure assessment, including review of the patient's medical history, medications, allergies, and review of systems, the patient was deemed to be an appropriate candidate for sedation. A timeout was performed. Continuous ECG monitoring, pulse oximetry, blood pressure monitoring, and direct observation were performed. The Colonoscope was introduced through the anus and advanced to the terminal ileum, with identification of the appendiceal orifice and IC valve. The colonoscopy was performed without difficulty. The patient tolerated the procedure well. The quality of the bowel preparation was good. At completion of the exam, the scope was advanced to the cecum and all residual air was removed. Estimated Blood Loss: Estimated blood loss: none. Findings: Normal mucosa was found in the entire colon. Biopsies for histology were taken with a cold forceps from the right colon, transverse colon and descending colon for evaluation of microscopic colitis. Internal hemorrhoids were found during retroflexion. The hemorrhoids were small. The terminal ileum appeared normal. Impression: - Normal mucosa in the entire examined colon. Biopsied. - Internal hemorrhoids. - The examined portion of the ileum was normal. Recommendation: - Await pathology results. - Repeat colonoscopy in 5 years for surveillance. Sebastian Laughlin MD 03/20/2024 1:22:54 PM This report has been signed electronically. Number of Addenda: [address]; [place] [address] Sebastian Laughlin MD GI PROCEDURE ORDERABLES Final Re sult from Last 3 Months or Most Recently Relevant to Health Maintenance Insurance [facility] [id number] Advance Directives For more information, please contact: [phone] * Full Code (Latest Code Status on File) Date Activated Date Inactivated Comments 03/20/2024 11:53 AM 03/20/2024 4:09 PM Care Teams Painter Structural Steel Relationship Specialty Start Date End Date Reji Dodd MD [address] [place] [address] PCP - General Internal Medicine 09/27/20
--- OUTSIDE RECORDS SUMMARY | 2024-10-31 16:04 | XMS_ITS | Referral Summary ---
Author Organization [facility] Address [address] [address] Care Team Providers Care Light Fixture Servicer Name Role Phone Reji Dodd MD Primary Care Provider [phone] oJnah Lemus MD Unavailable Allergies Active Allergy Reactions Criticality Noted Date Comments Adhesive Rash Medium 09/27/2020 Bacitracin-Polymyxin B Rash Medium 09/27/2020 Penicillins Nausea And Vomiting Low 09/27/2020 Sulfa (Sulfonamide Antibiotics) Headache Low 09/27/2020 Unclassified Drug Rash Medium 09/27/2020 Surgical prep cleanser Medications celecoxib (CeleBREX) 200 mg capsule 2 Active cetirizine (ZyrTEC) 10 mg tablet Take 1 tablet (10 mg total) by mouth daily Active dicyclomine (BENTYL) 20 mg tablet Take 1 tablet (20 mg total) by mouth every 6 (six) hours as needed 1 Active fluticasone furoate-vilant Rebeka (Breo Ellipta) 100-25 mcg/dose diskus inhaler Inhale 1 puff daily Active Breo Ellipta 100-25 mcg/dose diskus inhaler 2 Active multivitamin tablet Take 1 tablet by mouth daily Active RABEprazole DR (ACIPHEX) 20 mg EC tablet Take 1 tablet (20 mg total) by mouth daily Active rosuvastatin (CRESTOR) 20 mg tablet Take 20 mg by mouth daily Active Rybelsus 7 mg tablet 1 Active traZODone (DESYREL) 100 mg tablet Take 1 tablet (100 mg total) by mouth daily Active valACYclovir (VALTREX) 500 mg tablet Take by mouth 2 (two) times a day Active valsartan-hydr oCHLOROthiazid e (DIOVAN-HCT) 80-12.5 mg per tablet Take 1 tablet by mouth daily Active valsartan-hydr oCHLOROthiazid e (DIOVAN-HCT) 80-12.5 mg per tablet Take 1 tablet by mouth daily Active cholecalcifero l (VITAMIN D-3) 1,000 unit capsule Take 1 capsule (1,000 Units total) by mouth daily Active Mounjaro 5 mg/0.5 mL pen injector 3 Active Mounjaro 2.5 mg/0.5 mL pen injector INJECT 2.5 MG (0.5 ML) SUBCUTANEOUSLY WEEKLY FOR 4 WEEKS 3 Active traZODone (DESYREL) 50 mg tablet Take 2 tablets (100 mg total) by mouth daily 3 Active Valtrex 1 gram tablet 3 Active ciclopirox (PENLAC) 8 % solution APPLY TO AFFECTED AREA TOPICALLY EVERY DAY AT BEDTIME FOR 4 WEEKS 3 Active rosuvastatin (CRESTOR) 40 mg tablet Take 1 tablet (40 mg total) by mouth daily 3 Active Mounjaro 7.5 mg/0.5 mL pen injector 3 Active Mounjaro 10 mg/0.5 mL pen injector INJECT 10 MG (0.5 ML) SUBCUTANEOUSLY WEEKLY 3 Active Active Problems Problem Noted Date Diagnosed Date Rash 12/10/2022 Overview (12/28/2022): [facility] 12/15/2022: Low positive dsDNA IgG, but negative by crithidia, positive AURORA by Jennifer only, high C3 complement, very low positive MPO with negative ANCA, negative PR3, negative GBM Labs 12/10/2022: CBC WNL; CMP: ALT 30; CRP/ESR WNL; protein/creatinine ratio WNL; urinalysis WNL; Assessment & Plan (12/28/2022 4:35 PM CDT): Saba is a pleasant 57-year-old female presented to our office due to purple tinged rash appearing on sun-exposed areas of the bilateral legs on 2 separate occasions in the last several months. Has not had recurrence of rash in the preceding 2 months. When rash is present, she describes slight irritation without any other associated symptoms, including itching, burning, etc.. Otherwise, has noninflammatory joint symptoms and denies any other recent systemic complaints. Prior labs displayed negative AURORA, per her report, although not available for review. [facility] 12/15/2022 revealed a positive AURORA by Jennifer only and low positive dsDNA not confirmed by crithidia with very low positive MPO and negative ANCA, negative PR3, and negative GBM antibodies. CRP/ESR were within normal limits. 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 Discussed symptomatic management, including antihistamine use along with limiting exacerbating factors. Rash remains fully resolved and has not recurred since last visit. No evidence to suggest other connective tissue disease and/or inflammatory arthritis. Will have her follow up as needed or if any new symptoms arise. Seen with Dr. Lemus. Assessment & Plan (12/10/2022 3:58 PM CDT): Saba is a pleasant 57-year-old female presenting due to purple tinged rash appearing on sun-exposed areas of the bilateral legs on 2 separate occasions in the last several months. Has not had recurrence of rash in the preceding 2 months. When rashes present, describes slight irritation without any other associated symptoms, including itching, burning, etc.. Otherwise, has noninflammatory joint symptoms and denies any other recent systemic complaints. Prior labs displayed negative AURORA, per her report, although not available for review. 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 Will evaluate further with appropriate serologies. My suspicion for systemic vasculitis is very low. Follow-up 2 weeks. Sooner if needed. Seen with Dr. Lemus. Surgical follow-up care 02/26/2014 Knee pain 12/07/2013 Immunizations Immunization Administration Dates Next Due H1N1 Inj 04/11/2015 Influenza, Quadrivalent, Caroline l Culture-based MDCK, Antibiotic Free, Intramuscular 07/14/2019 Influenza, Split 04/11/2013 Social History Tobacco Use Types Packs/Day Years Used Date Smoking Tobacco: Never Smokeless Tobacco: Never Tobacco Cessation:Counseling Given: Not Answered Comments Unknown Sex and Gender Information Value Date Recorded Sex Assigned at Not on file Legal Sex Female 1:04 AM ANTENNA SPECIALIST Gender Identity Not on file Sexual Orientation Not on file Last Filed Vital Signs Vital Sign Reading Time Taken Comments Blood Pressure 120/76 12/28/2022 2:02 PM CDT Pulse 90 12/28/2022 2:02 PM CDT Temperature 36.7 C (98 F) 04/23/2020 8:16 AM CDT Respiratory Rate - - Oxygen Saturation 97% 12/28/2022 2:02 PM CDT Inhaled Oxygen Concentration - - Weight 104.8 kg (231 lb) 12/28/2022 2:02 PM CDT Height 174 cm (5' 8.5 ) 12/28/2022 2:02 PM CDT Body Mass Index 34.61 12/28/2022 2:02 PM CDT Plan of Treatment Not on file Insurance [facility] H[facility]/PPO Address: [facility] [address] [place] [address] [facility]/PPO Address: [address] [place] [address] [address] [facility]ICE [facility] H[facility]/PPO Address: [address] [place] [address] [address] Y[address], [address] CHOICE [facility] H[facility]/PPO Address: [address] [place] [address] Care Teams Light Fixture Servicer Relationship Specialty Start Date End Date Reji Dodd MD [address] [facility] [address] [place] [id number] PCP - General Internal Medicine 01/09/20 Jonah Lemus MD [address] [place] [address] Consulting Physician Rheumatology 10/15/22
--- OUTSIDE RECORDS SUMMARY | 2024-10-31 16:04 | XMS_ITS | Clinical Summary ---
Author Organization [facility] Address [address] [address] Care Team Providers Care Balance Wheel Screw Hole Tapper Name Role Phone Reji Dodd MD Primary Care Provider [phone] Jonah Lemus MD Unavailable Allergies Active Allergy Reactions [...] on file Legal Sex Female 1:04 AM GRUBBER Gender Identity Not on file Sexual Orientation Not on file Obstetrics History Last Filed Vital Signs Vital Sign Reading [...] 12/28/2022 2:02 PM CDT Plan of Treatment Health Maintenance Due Date Last Done Comments Breast Cancer Screening-Mammogram 1965 Cervical Cancer Screening 1966 Colon Cancer Screening-Colonoscopy 1966 Depression Screening 1966 Hepatitis C Screening 1966 DTaP/Tdap/Td Vaccine (1 - Tdap) 1977 Hepatitis B Screening 1984 Regular Well Visit/Exam 18-64 1984 Zoster Vaccine (1 of 2) 2016 Influenza Vaccine (Season Ended) 2025 07/14/2019, 04/11/2013 Pneumococcal vaccine <65 Aged Out No longer eligible based on patient's age to complete this topic Insurance [facility] CHO[facility] [place] [address] [facility] PLUS [facility] CHO[facility] PLUS Care Teams Balance Wheel Screw Hole Tapper Relationship Specialty Start Date End Date Reji Dodd MD [address] [place] [address] [place] [id number] PCP - General Internal Medicine 01/09/20 Jonah Lemus MD [address] [place] [address] Consulting Physician Rheumatology 10/15/22
== END 2024-10-31 14:00 | disposition home or self-care (01) ==
PROVIDERS: PCP Internal Medicine; Visit Provider Internal Medicine
DX: M19.011 Primary osteoarthritis, right shoulder (principal); M50.322 Other cervical disc degeneration at C5-C6 level; M50.323 Other cervical disc degeneration at C6-C7 level; M25.861 Other specified joint disorders, right knee; Z98.890 Other specified postprocedural states
CPT/HCPCS: 70360; 72050; 73030; 73564

== ENCOUNTER 2025-02-09 07:41 | Outpatient (CLI) | payer OTHER, SELFPAY ==
--- NOTE | ~2025-02-09 | MM_ITS ---
EXAMINATION: MM screening daisha BI w ryan HISTORY: Screening TECHNIQUE: Craniocaudal and mediolateral oblique 3-D tomosynthesis images were obtained and synthetic 2-D images were generated. CAD analysis was submitted and interpreted. COMPARISON: 03/07/2018 BREAST PARENCHYMAL COMPOSITION: Not Dense: The breasts are almost entirely fatty. FINDINGS: There is no evidence of suspicious mass, calcification, or architectural distortion to sugg est malignancy in either breast. There has been no suspicious interval change. IMPRESSION: 1. No mammographic evidence of malignancy. 2. Recommend routine screening mammography in one year. BI-RADS Category 1: Negative Reviewed, dictated and finalized at location []
== END 2025-02-09 07:42 | disposition home or self-care (01) ==
LOC: MICIMG 07:42
PROVIDERS: PCP Internal Medicine; Visit Provider Obstetrics & Gynecology
DX: Z12.31 Encounter for screening mammogram for malignant neoplasm of breast (principal)
CPT/HCPCS: 77063; 77067